=== PATIENT | male | born 1940 | race Caucasian/White ===

== ENCOUNTER → 2024-03-22 11:13 | Outpatient (REF) | payer MEDICARE, BC, SELFPAY ==
[2024-03-22 12:25] LABS: % Basophils 0.8 % (0-2); % Immature Granulocytes 0.2 % (0-0.5); % Lymphocytes 20.2 % (20.5-51.1); % Monocytes 10.3 % (1.7-9.3); % Neutrophils 64.5 % (42.2-75.2); Absolute Eosinophils 0.2 10^3/uL (0-0.7); Absolute Monocytes 0.5 10^3/uL (0.1-0.6); Absolute Neutrophils 3.2 10^3/uL (1.4-6.5); Hematocrit 40.3 % (39.0-52.0); Hemoglobin 13.9 g/dL (13.0-18.0); Mean Corp Hgb Conc. 34.5 g/dL (33.0-37.0); Mean Corpuscular Volume 95.7 fL (80.0-94.0); Mean Platelet Volume 9.9 fL (7.4-10.4); Nucleated Red Blood Cells % 0 % (-); Platelet Count 223 10^3/uL (130-400); Red Blood Cell Count 4.21 10^6/uL (4.70-6.10); Red Cell Dist. Width 13.3 % (11.5-14.5); White Blood Cell Count 4.9 10^3/uL (4.8-10.8)
[2024-03-22 12:54] LABS: ALT (SGPT) 24 U/L (0-50); AST (SGOT) 34 U/L (17-59); Albumin 4.1 g/dl (3.5-5.0); Alkaline Phosphatase 53 U/L (38-126); Blood Urea Nitrogen 28 mg/dl (9-20); Calcium 10.1 mg/dl (8.4-10.2); Carbon Dioxide 28 mmol/L (22-30); Chloride 102 mmol/L (98-107); Glucose 93 mg/dl (70-99); HDL Cholesterol 84 mg/dl; LDL Cholesterol, Calculated 48 mg/dl; Potassium 4.7 mmol/L (3.5-5.1); Sodium 139 mmol/L (135-145); Total Bilirubin 0.7 mg/dl (0.2-1.3); Total Cholesterol 140 mg/dl (50-199); Total Protein 6.4 g/dl (6.3-8.2); Triglyceride 42 mg/dl (10-149); Very Low Density Lipoprotein 8 mg/dl (0-30); eGFR > 60.00
[2024-03-22 13:07] LABS: TSH Reflex To Free T4 3.42 uIU/ml (0.47-4.68)
[2024-03-22 13:43] LABS: Folate > 20.0 ng/ml (2.76-20); Vitamin B12 986 pg/ml (239-931)
[2024-03-22 14:24] LABS: Urine Albumin Negative (Neg - Trace); Urine Bilirubin Negative (Negative); Urine Character Clear (Clear); Urine Color Yellow; Urine Glucose Negative (Negative); Urine Ketone Negative (Negative); Urine Leukocyte Negative (Negative); Urine Nitrite Negative (Negative); Urine Occult Blood Negative (Negative); Urine Urobilinogen Negative (Neg - 1+)
== END ==
LOC: REG 11:13
PROVIDERS: ATTENDING PHYSICIAN Family Medicine
DX: Z79.01 Long term (current) use of anticoagulants (principal); G25.0 Essential tremor; I48.21 Permanent atrial fibrillation; I10 Essential (primary) hypertension; G31.09 Other frontotemporal neurocognitive disorder; D51.0 Vitamin B12 deficiency anemia due to intrinsic factor deficiency; D52.9 Folate deficiency anemia, unspecified
CPT/HCPCS: 36415; 80053; 80061; 81003; 82607; 82746; 84443; 85025

== ENCOUNTER 2024-07-03 10:59 | Emergency (ER) | payer MEDICARE, BC, SELFPAY ==
[2024-07-03 11:11] VITALS: BP 133/83
--- NOTE | 2024-07-03 13:59 | ED.GENMED ---
History of Present Illness
General
Chief Complaint: Skin Surface Trauma
Source: patient
Exam Limitations: none
Time Seen by Provider: 07/03/24 12:18
History of Present Illness
History of Present Illness:
84-year-old male on [place] presents after a fall he sustained last evening. He may have hit his head but he also has a skin tear to the left wrist. Companied by his . No other complaints at this time
Past History
Past History
ED Past Medical History: Arrthythmia (Atrial fibrillation), HTN and Hypercholesterolemia
ED Past Surgical History: None
Social History
Tobacco: Non-smoker
Alcohol: None
Drug: None
Personal:
Living: with family
Employment: Retired
Family History
Family History: Other (Noncontributory)
Phy Exam
Physical Exam
Physical Exam:
General: Well-appearing male no acute respiratory distress
HEENT: Normocephalic subtle abrasion noted to the right side of the forehead pupils equal round reactive to light
Heart: Regular rate and rhythm
Lungs: Clear no wheeze
Abdomen is soft nontender
Skin: Superficial skin tear radial aspect left wrist not currently bleeding there is surrounding ecchymosis
Musculoskeletal exam: Left wrist is slightly tender without deformity
Course
Orders/Labs/Results
Orders:
Orders
07/03/24 12:29
CT Head W/o Iv Contrast Urgent
Comment:
Reason For Exam: fall
CR Wrist - Left Min 3 Views Urgent
Comment:
Reason For Exam: fall
Vital Signs
Initial and Last Documented VS:
Initial Vital Signs
Temp Pulse Resp BP Pulse Ox
98 F 85 16 133/83 100
07/03/24 11:11 07/03/24 11:11 07/03/24 11:11 07/03/24 11:11 07/03/24 11:11
Last Documented Vital Signs
Temp Pulse Resp BP Pulse Ox
98 F 85 16 133/83 100
07/03/24 11:11 07/03/24 11:11 07/03/24 11:11 07/03/24 11:11 07/03/24 11:11
MDM/Problems Addressed
Differential Diagnosis Includes:
Fall. Skin tear left wrist. Nonviable flaps of skin were excised and the wound was then dressed with a nonstick gauze wrap. X-ray of the left wrist was ordered to evaluate for fracture or dislocation this was negative. CT of the head was ordered
to evaluate for intracranial hemorrhage and this was negative. Patient and reassured. Stable for discharge
*Critical Care Note
Total Time (30-74mins, 75-104mins- exclusive of procedures): Not Applicable
ED Attending Note
-
Portions of this chart may have been created with voice recognition software.� Occasional wrong word or��sound alike� substitutions may have occurred due to the inherent limitations of voice recognition software.
Discharge Plan
Departure
Patient Disposition: Home (Routine Discharge)
Date of Disposition: 07/03/24
Time of Disposition: 14:01
Patient with high blood pressure during this ER visit?: No
Discharge Problem:
Skin tear
Instructions: Wound Care (DC)
Prescriptions:
No Action
donepezil 10 mg Tablet
10 mg PO HS
simvastatin 40 mg Tablet
40 mg PO DAILY
Centrum Silver Men [id number] mcg Tablet
1 tab PO DAILY
Eliquis 5 mg Tablet
5 mg PO BID
Referrals:
Norma Woodson MD [Family Provider] -
Activity Restrictions/Additional Instructions:
Continue to apply antibacterial into the wound. Change dressing daily. Return if needed.
Interventions
Interventions:
*Risk Screen - Suicide Last Done: 07/03/24 11:21
*Neglect/Abuse Screening Last Done: 07/03/24 11:21
Discharge Date and Time
Print Language: ARABIC
[2024-07-03 14:31] VITALS: BP 145/98
== END 2024-07-03 14:41 | disposition home or self-care (01) ==
LOC: EMR 10:59
PROVIDERS: EMERGENCY PHYSICIAN Emergency Medicine; FAMILY PHYSICIAN Family Medicine
DX: S61.512A Laceration without foreign body of left wrist, initial encounter (principal); S60.212A Contusion of left wrist, initial encounter; S00.81XA Abrasion of other part of head, initial encounter; W19.XXXA Unspecified fall, initial encounter; I48.91 Unspecified atrial fibrillation; I10 Essential (primary) hypertension; E78.00 Pure hypercholesterolemia, unspecified; Z79.01 Long term (current) use of anticoagulants
CPT/HCPCS: 99284; 70450; 73110

== ENCOUNTER 2024-12-10 14:27 | Emergency (ER) | payer MEDICARE, BC, SELFPAY ==
[2024-12-10 14:38] VITALS: BP 97/62
[2024-12-10 20:00] VITALS: BP 142/91
--- NOTE | 2024-12-10 20:02 | ED.GENMED ---
History of Present Illness
General
Chief Complaint: Fall
Source: patient and spouse
Exam Limitations: none
Time Seen by Provider: 12/10/24 19:47
History of Present Illness
History of Present Illness:
84-year-old male fell yesterday. Fell today. Unwitnessed. Suspected balance issue. No obvious head injury. Abrasion to the arm and a small abrasion to his back. Patient does not recall what happened. He is a fall risk at home. He is on
Eliquis however. 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 Patient has ambulated and is at his neurologic baseline per the . Primarily here to evaluate for the fall
Past History
Past History
ED Past Medical History: Arrthythmia (Atrial fibrillation), HTN and Hypercholesterolemia
ED Past Surgical History: None
Social History
Tobacco: Non-smoker
Alcohol: None
Drug: None
Personal:
Living: with family
Employment: Retired
Family History
Family History: Other (Noncontributory)
Review of Systems
Review of Systems
All Other Systems: Not applicable
Respiratory: Reports no symptoms
Cardiac: Reports no symptoms
ABD/GI: Reports no symptoms
Phy Exam
Physical Exam
Physical Exam:
TRAUMA EXAM:
VITAL SIGNS: Vital signs reviewed, cooperative
DISTRESS: No active disease
EYES: Pupils reactive, no orbital trauma
NOSE: No deformity or epistaxis
FACE AND SCALP: No scalp or facial trauma, external canals no blood
NECK: Supple nontender
BACK: Back nontender, pelvis stable to compression
RESPIRATORY: No distress, breath sounds normal, no tender chest wall. Small abrasion to the left mid back superficial skin tear to the left forearm.
CARDIAC: No murmur, pulses equal and strong
ABDOMEN: Soft nontender bowel sounds normal
SKIN: Skin intact no bleeding, color normal
EXTREMITIES: No deep bony tenderness. All joints negative. No deformities. Pelvis stable. No pain with hip motion. No deep bony tenderness over any abrasion to the left arm.
NEUROLOGICAL: Alert, nonfocal.
PSYCH: Mood affect normal
Course
Orders/Labs/Results
Orders:
Orders
12/10/24 14:40
CT Cervical Spine W/o Iv Contr Urgent
Comment:
Reason For Exam: fall
CT Head W/o Iv Contrast Urgent
Comment:
Reason For Exam: fall
Vital Signs
Initial and Last Documented VS:
Initial Vital Signs
Temp Pulse Resp BP Pulse Ox
97.7 F 78 16 97/62 97
12/10/24 14:38 12/10/24 14:38 12/10/24 14:38 12/10/24 14:38 12/10/24 14:38
Last Documented Vital Signs
Temp Pulse Resp BP Pulse Ox
97.6 F 76 18 142/91 97
12/10/24 20:00 12/10/24 20:00 12/10/24 20:00 12/10/24 20:00 12/10/24 20:07
MDM/Problems Addressed
Differential Diagnosis Includes:
Frequent falls. Risk due to his neurologic disease. Doubt syncope. Offered labs EKG and further workup for possible recurrent syncope although this has been an ongoing issue in the past. He does not use his walker as he should. passed on
this further workup. Fully understandable. 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 She stated he had discussed doing the watchman which she can recontact him about.
*Radiology
Radiology exam reviewed: radiology read reviewed (No acute findings)
*Pulse Oximetry
SaO2: 97
Oxygen Mode of Delivery: Room air
Patient hypoxic: no
*Critical Care Note
Total Time (30-74mins, 75-104mins- exclusive of procedures): Not Applicable
Update Note
Update Note:
Procedure sterile debridement of the forearm abrasion and/skin tear. Last tetanus less than 5
ED Attending Note
-
Portions of this chart may have been created with voice recognition software.� Occasional wrong word or��sound alike� substitutions may have occurred due to the inherent limitations of voice recognition software.
Discharge Plan
Departure
Patient Disposition: Home (Routine Discharge)
Date of Disposition: 12/10/24
Time of Disposition: 20:07
Patient with high blood pressure during this ER visit?: Yes
Discharge Problem:
Frequent falls, Multiple abrasions/contusions
Instructions: Head Injury in Adults (DC), Contusion (DC), Preventing falls in adults, Skin Abrasions (DC)
Prescriptions:
No Action
donepezil 10 mg Tablet
10 mg PO HS
simvastatin 40 mg Tablet
40 mg PO DAILY
Centrum Silver Men [id number] mcg Tablet
1 tab PO DAILY
Eliquis 5 mg Tablet
5 mg PO BID
Referrals:
NONE,* [Family Provider, Internal Medicine]
Activity Restrictions/Additional Instructions:
Follow-up closely with your primary physician
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
Interventions
Interventions:
*Risk Screen - Suicide Last Done: 12/10/24 14:38
*General Assessment Last Done: 12/10/24 14:38
*Neglect/Abuse Screening Last Done: 12/10/24 14:38
*Nursing Disposition Last Done: 12/10/24 20:22
ED-Musculoskeletal Assessment Last Done: 12/10/24 20:06
ED- Neurological Assessment Last Done: 12/10/24 20:06
ED-Skin Assessment Last Done: 12/10/24 20:06
Discharge Date and Time
Discharge Date/Time: 12/10/24 20:24
Print Language: KHMER
== END 2024-12-10 20:24 | disposition home or self-care (01) ==
LOC: EMR 14:27
PROVIDERS: EMERGENCY PHYSICIAN Emergency Medicine
DX: S51.812A Laceration without foreign body of left forearm, initial encounter (principal); S20.412A Abrasion of left back wall of thorax, initial encounter; W19.XXXA Unspecified fall, initial encounter; R29.6 Repeated falls; I10 Essential (primary) hypertension; E78.00 Pure hypercholesterolemia, unspecified; I48.91 Unspecified atrial fibrillation; Z79.01 Long term (current) use of anticoagulants
CPT/HCPCS: 99284; 70450; 72125

== ENCOUNTER 2024-12-25 16:32 | Emergency (ER) | payer MEDICARE, BC, SELFPAY ==
[2024-12-25 16:34] VITALS: BP 129/84
[2024-12-25 17:22] VITALS: BMI 22.8
--- NOTE | 2024-12-25 18:03 | ED.MUSCINJ ---
HPI-Injury
General
Chief Complaint: Fall
Source: patient and spouse
Exam Limitations: none
Time Seen by Provider: 12/25/24 17:51
Nursing documentation reviewed up to this point in time: agreed with
History of Present Illness-Injury
Is this injury a work related problem?: No
Is pt an associate of [facility]/[place]?: No
Initial Injury comments:
84-year-old male accompanied by his uses residual today slipped and fell struck his left upper arm and his head, no preceding chest pain or shortness of breath on the drive up. Complained of some low back pain, has normal mental status appears
to have a resting tremor, takes Eliquis
Past History
Past History
ED Past Medical History: Arrthythmia (Atrial fibrillation), HTN and Hypercholesterolemia
ED Past Surgical History: None
Social History
Tobacco: Non-smoker
Alcohol: None
Drug: None
Personal:
Living: with family
Employment: Retired
Family History
Family History: Other (Noncontributory)
Review of Systems
Review of Systems
All Other Systems: Not applicable
Constitutional: Denies fever
EENT: Reports no symptoms
Respiratory: Reports no symptoms
Cardiac: Denies chest pain or syncope
Musculoskeletal: Reports joint pain, muscle pain and back pain
Neurological: Reports no symptoms
Endocrine: Reports no symptoms
Hematologic/Lymphatic: Reports bruising (Chronic bruising)
Phy Exam
Physical Exam
Physical Exam:
Physical Exam
General: Chronically ill-appearing male resting comfortably easily arousable
Neck: No tongue bite no posterior neck
Heart: Regular strong radial pulse bilateral
Lungs: no acute respiratory distress. clear bilaterally
Abdomen: Nontender
Back: Mild midline tenderness over the lumbar spine no midline tenderness over thoracic or cervical spine
Neuro: alert and oriented. Resting tremor
Skin: no rash
Psychiatric: well kept. interactive and cooperative
Extremities: No pain with range of motion of the hips, minimally tender over the proximal humerus on the left, old appearing bruising and ecchymosis over the left forearm
Injury Course
Orders/Labs/Results
Orders:
Orders
12/25/24 17:51
CT Cervical Spine W/o Iv Contr Urgent
Comment:
Reason For Exam: fall
CT Head W/o Iv Contrast Urgent
Comment:
Reason For Exam: fall
12/25/24 17:56
Forearm, Left 2 View [CR Forearm - Left 2 View] Urgent
Comment:
Reason For Exam: fall
Humerus, Left 2 Views [CR Humerus - Left Min 2 Views*] Urgent
Comment:
Reason For Exam: fall
Lumbar Spine, 2 or 3 View [CR Lumbar Spine 2 Or 3 Views] Urgent
Comment:
Reason For Exam: fall
MDM/Problems Addressed
Differential Diagnosis Includes:
Slip and fall as opposed to syncope, head injury C-spine injury soft tissue injury, lumbar spine injury, upper extremity injury
MDM/Problems Addressed:
Fall
Chronic conditions affecting care: Arrhythmia and Neurological disorder
Acute Exacerbation and/or Progression of Chronic Illness: Neurological disorder
*Radiology
Radiology exam reviewed: radiology read reviewed
*Pulse Oximetry
SaO2: 100
Oxygen Mode of Delivery: Room air
Patient hypoxic: no
*Critical Care Note
Total Time (30-74mins, 75-104mins- exclusive of procedures): Not Applicable
Update Note
Update Note:
[address] reports noted plain films noted no obvious fracture to my eye formal report pending
ED Attending Note
-
Portions of this chart may have been created with voice recognition software.� Occasional wrong word or��sound alike� substitutions may have occurred due to the inherent limitations of voice recognition software.
Discharge Plan
Departure
Patient Disposition: Home (Routine Discharge)
Date of Disposition: 12/25/24
Time of Disposition: 19:54
Patient with high blood pressure during this ER visit?: No
Condition: Good
Discharge Problem:
Fall
Instructions: Head Injury in Adults (DC), Preventing falls in adults, Skin Abrasions (DC), Contusion (DC)
Prescriptions:
No Action
donepezil 10 mg Tablet
10 mg PO HS
simvastatin 40 mg Tablet
40 mg PO DAILY
Centrum Silver Men [id number] mcg Tablet
1 tab PO DAILY
Eliquis 5 mg Tablet
5 mg PO BID
Referrals:
Norma Woodson MD [Family Provider, Family Practice] - Next open appointment
Activity Restrictions/Additional Instructions:
Ice to areas that hurt, Tylenol as needed for pain
Return to the ER if worsening headaches, confusion seizures or any other concerns
Interventions
Interventions:
*Risk Screen - Suicide Last Done: 12/25/24 16:34
*General Assessment Last Done: 12/25/24 17:22
*Neglect/Abuse Screening Last Done: 12/25/24 17:22
*ED- Fall Risk Assessment Last Done: 12/25/24 17:22
*ED COVID-19 Vaccine History Last Done: 12/25/24 17:22
ED- Neurological Assessment Last Done: 12/25/24 17:22
ED-Skin Assessment Last Done: 12/25/24 17:22
Discharge Date and Time
Print Language: ICELANDIC
[2024-12-25 20:09] VITALS: BP 148/91
== END 2024-12-25 20:29 | disposition home or self-care (01) ==
LOC: EMR 16:32
PROVIDERS: EMERGENCY PHYSICIAN Emergency Medicine; FAMILY PHYSICIAN Family Medicine
DX: Z04.3 Encounter for examination and observation following other accident (principal); I48.91 Unspecified atrial fibrillation; I10 Essential (primary) hypertension; E78.00 Pure hypercholesterolemia, unspecified; Z79.01 Long term (current) use of anticoagulants; W01.0XXA Fall on same level from slipping, tripping and stumbling without subsequent striking against object, initial encounter
CPT/HCPCS: 99284; 70450; 72100; 72125; 73060; 73090

== ENCOUNTER 2025-01-08 14:07 | Emergency (ER) | payer MEDICARE, BC, SELFPAY ==
[2025-01-08 14:09] VITALS: BP 114/71
--- NOTE | 2025-01-08 17:29 | ED.GENMED ---
History of Present Illness
General
Chief Complaint: Urinary Symptoms
Source: spouse
Exam Limitations: dementia
Time Seen by Provider: 01/08/25 17:09
History of Present Illness
History of Present Illness:
84yoM with a history of frontotemporal dementia, atrial fibrillation, hypertension, hyperlipidemia presenting with his for evaluation of urinary incontinence. reports intermittent bouts of urinary incontinence over the past 6 months or
so. He also has some bowel incontinence at times but this is much more rare and has not occurred for a few weeks. Patient was paranoid when he woke up this morning and was talking about someone stealing money from him. He also called his
'mother' yesterday which is unusual for him. spoke with the PCP who advised her to bring her to the ED for him to be evaluated by a UTI. There has been no fevers or vomiting. He has a history of frequent falls and was seen 2x in the past
month for falls.
Past History
Past History
ED Past Medical History: Arrthythmia (Atrial fibrillation), HTN and Hypercholesterolemia
ED Past Surgical History: None
Social History
Tobacco: Non-smoker
Alcohol: None
Drug: None
Personal:
Living: with family
Employment: Retired
Family History
Family History: Other (Noncontributory)
Phy Exam
General Physical Exam
General Presentation: well appearing and no apparent distress
General Skin: warm and dry
General Habitus: normal
General Mental: alert
ENT Exam
ENT Exam: normocephalic
Cardiovascular Exam
Cardiovascular Exam: regular rate/rhythm
Pulmonary Exam
Pulmonary Exam: lungs clear, no respiratory distress, no rales, no crackles, no rhonchi and no wheezing
Gastrointestinal Exam
Gastrointestinal Exam: non tender, soft and non distended
Neurological Exam
Neurological Exam: alert
Skin Exam
Skin Exam: normal color and warm/dry
Psychiatric Exam
Psychiatric Exam: normal mood/affect
Course
Orders/Labs/Results
Orders:
Orders
01/08/25 17:41
Complete Blood Count/With Diff Urgent
Comprehensive Metabolic Panel Urgent
01/08/25 18:05
Urinalysis Reflex To Culture Urgent
Date Specimen was Collected: 01/08/25
Time Specimen was Collected: 18:01
Urine Microscopic Reflex Cult Urgent
Abnormal Lab Results
01/08/25 01/08/25
17:41 18:05
RBC 3.93 L 10^6/uL
(4.70-6.10)
Hgb 12.4 L g/dL
(13.0-18.0)
Hct 36.7 L %
(39.0-52.0)
MCH 31.6 H pg
(27.0-31.0)
Absolute Lymphs (auto) 0.8 L 10^3/uL
(1.2-3.4)
Lymphocytes % 15.8 L %
(20.5-51.1)
Monocytes % 10.8 H %
(1.7-9.3)
BUN 28 H mg/dl
(9-20)
Glucose 101 H mg/dl
(70-99)
Total Protein 5.9 L g/dl
(6.3-8.2)
Urine Albumin (Reflex) 1+ A
(Neg - Trace)
01/08/25 17:41
01/08/25 17:41
Vital Signs
Initial and Last Documented VS:
Initial Vital Signs
Temp Pulse Resp BP Pulse Ox
97.8 F 68 12 114/71 99
01/08/25 14:09 01/08/25 14:09 01/08/25 14:09 01/08/25 14:09 01/08/25 14:09
Last Documented Vital Signs
Temp Pulse Resp BP Pulse Ox
97.8 F 64 13 126/83 99
01/08/25 14:09 01/08/25 19:00 01/08/25 19:00 01/08/25 19:00 01/08/25 18:15
MDM/Problems Addressed
Differential Diagnosis Includes:
84yoM here to be evaluated for a UTI. Intermittent episodes of urinary incontinence x 6 months. Hx of frontotemporal dementia. VSS. He is well appearing in no distress and abdominal exam benign. Differential diagnosis includes but is not limited to:
UTI, progression of dementia, hyperglycemia, overflow incontinence
Initial ED plan: Check CBC, CMP, and UA.
*Pulse Oximetry
SaO2: 99
Oxygen Mode of Delivery: Room air
Patient hypoxic: no (99%)
*Critical Care Note
Total Time (30-74mins, 75-104mins- exclusive of procedures): Not Applicable
Update Note
Update Note:
Labs unremarkable including normal renal function and glucose. UA bland without microscopic hematuria or signs of infection. No indication for hospitalization. Suspect progression of his underlying dementia. is sole caregiver although she
is not interested in placement at this time. Advised follow-up with PCP and ED return precautions reviewed. Patient discharged stable condition.
ED Attending Note
-
Portions of this chart may have been created with voice recognition software.� Occasional wrong word or��sound alike� substitutions may have occurred due to the inherent limitations of voice recognition software.
Discharge Plan
Departure
Patient Disposition: Home (Routine Discharge)
Date of Disposition: 01/08/25
Time of Disposition: 19:18
Patient with high blood pressure during this ER visit?: No
Discharge Problem:
Urinary incontinence
Instructions: Urinary incontinence in adults - ED (DC)
Prescriptions:
No Action
donepezil 10 mg Tablet
10 mg PO HS
simvastatin 40 mg Tablet
40 mg PO DAILY
Centrum Silver Men 266-60-575-300 mcg Tablet
1 tab PO DAILY
Eliquis 5 mg Tablet
5 mg PO BID
Referrals:
Norma Woodson MD [Family Provider, Family Practice]
Activity Restrictions/Additional Instructions:
Please follow-up with your family doctor. Return to the ER with any new or worsening symptoms.
Interventions
Interventions:
*Risk Screen - Suicide Last Done: 01/08/25 14:09
*General Assessment Last Done: 01/08/25 14:09
*Neglect/Abuse Screening Last Done: 01/08/25 14:09
*ED COVID-19 Vaccine History Last Done: 01/08/25 14:09
*Nursing Disposition Last Done: 01/08/25 19:31
ED-Male Genitourinary Assessment Last Done: 01/08/25 18:21
Discharge Date and Time
Discharge Date/Time: 01/08/25 19:31
Print Language: HEBREW
[2025-01-08 17:44] VITALS: BP 133/92
[2025-01-08 17:56] LABS: Hematocrit 36.7 % (39.0-52.0); Hemoglobin 12.4 g/dL (13.0-18.0); Mean Corp Hgb Conc. 33.8 g/dL (33.0-37.0); Mean Corpuscular Volume 93.4 fL (80.0-94.0); Nucleated Red Blood Cells % 0 % (-); Platelet Count 214 10^3/uL (130-400); Red Cell Dist. Width 13.7 % (11.5-14.5)
[2025-01-08 18:05] VITALS: BP 130/93
[2025-01-08 18:08] LABS: ALT (SGPT) 21 U/L (0-50); AST (SGOT) 29 U/L (17-59); Albumin 3.8 g/dl (3.5-5.0); Alkaline Phosphatase 54 U/L (38-126); Blood Urea Nitrogen 28 mg/dl (9-20); Calcium 9.7 mg/dl (8.4-10.2); Carbon Dioxide 26 mmol/L (22-30); Chloride 107 mmol/L (98-107); Glucose 101 mg/dl (70-99); Potassium 4.5 mmol/L (3.5-5.1); Sodium 136 mmol/L (135-145); Total Protein 5.9 g/dl (6.3-8.2); eGFR > 60.00
[2025-01-08 18:14] LABS: Urine Character Clear (Clear)
[2025-01-08 18:55] LABS: Urine Red Blood Cell 0-2 /HPF (0-2); Urine Squamous Cell 0-2 /LPF (Few); Urine White Cell 0-2 /HPF (0-5)
[2025-01-08 19:00] VITALS: BP 126/83
== END 2025-01-08 19:31 | disposition home or self-care (01) ==
LOC: EMR 14:07
PROVIDERS: Physician Assistant; EMERGENCY PHYSICIAN Student in an Organized Health Care Education/Training Program; FAMILY PHYSICIAN Family Medicine
DX: R32 Unspecified urinary incontinence (principal); G31.09 Other frontotemporal neurocognitive disorder; F02.80 Dementia in other diseases classified elsewhere, unspecified severity, without behavioral disturbance, psychotic disturbance, mood disturbance, and anxiety; I48.91 Unspecified atrial fibrillation; E78.00 Pure hypercholesterolemia, unspecified; I10 Essential (primary) hypertension; Z91.81 History of falling
CPT/HCPCS: 99283; 80053; 81003; 81015; 85025